=== PATIENT | male | born 1995 | race African-American/Black ===

== ENCOUNTER 2017-11-29 17:00 | Emergency (ER) | payer OTHER ==
[~2017-11-29] VITALS: Ht 182.9 cm; Wt 71.1 kg
[2017-11-29 17:02] VITALS: TEMP 38.4; Ht 182.9 cm; Wt 71.1 kg
--- NOTE | 2017-11-29 17:10 | EMERGENCY ROOM VISIT NOTE ---
ED Visit Note First contact with patient: 17:05 CHIEF COMPLAINT: Sore throat HISTORY OF PRESENTING ILLNESS: This is a 22-year-old male presents the emergency department by private vehicle with complaint of sore throat for the past 4 days. Patient was seen at [facility] today and was sent here for further evaluation. Patient has been having fevers, he last took ibuprofen 400 mg around 9 AM today. He states that the pain is constant, worse with swallowing, 10/10. He states that he has hardly had anything to eat and drink for the past 2 days and today it has felt difficult to swallow his saliva. He has had associated fevers and chills. He denies any headaches, vision changes, neck pain or stiffness, ear pain, cough, chest pain, shortness of breath, dizziness or syncope, abdominal pain, nausea or vomiting, urinary symptoms, or rash. He denies any history of throat problems in the past. He does think that he accidentally shared a drink with someone who had a sore throat recently. He reports that he is up-to-date on immunizations. REVIEW OF SYSTEMS: A complete 10 point review of systems was reviewed with the patient with pertinent positives and negatives as per history of present illness. All else were negative. PAST MEDICAL HISTORY: No significant past medical or surgical history. Up-to- date on immunizations. SOCIAL HISTORY: Lives at home. He is a [employer] student. He denies tobacco use. ALLERGIES: No known allergies. PHYSICAL EXAM: CONSTITUTIONAL: Pleasant and cooperative. No acute distress. Mildly dehydrated , but otherwise well appearing and well nourished. HEENT: Normocephalic, atraumatic. Pupils equal, round and reactive to light, EOMI. TMs normal. Pharynx is erythematous, with white exudates. Bilateral tonsillar edema, right greater than left with rightward uvular deviation. Positive trismus. Positive muffled voice. Tacky mucous membranes. NECK: Supple, full active range of motion without discomfort. Bilateral anterior cervical adenopathy, right greater than left. Tender to palpation. No palpable posterior cervical adenopathy. No nuchal rigidity or meningismus. RESPIRATORY: Clear to auscultation bilaterally with no wheezing, crackles, rhonchi or stridor. Equal expansion bilaterally. CARDIOVASCULAR: Regular rate and rhythm with no murmurs, rubs or gallops. Normal peripheral perfusion. No edema. GASTROINTESTINAL: Soft, nontender, nondistended. No palpable masses or HSM. Bowel sounds present in all quadrants. MUSCULOSKELETAL: Full range of motion of all joints without discomfort. INTEGUMENTARY: No rash or other significant dermatologic conditions noted. NEUROLOGIC: Alert and oriented X 4 with normal affect. Normal strength and sensation in all 4 extremities. No focal neurologic deficits noted. Normal gait observed. ED COURSE AND MEDICAL DECISION MAKING: CC: Patient presenting with complaint of sore throat DIFFERENTIAL DIAGNOSIS: Includes, but not limited to viral pharyngitis, strep pharyngitis, mononucleosis, tonsillitis, peritonsillar abscess, retropharyngeal abscess, among others. INTERPRETATION OF LABS: Marked leukocytosis with left shift, mild anemia, normal platelets, no significant electrolyte abnormalities, normal renal function. Waldo screen negative. Rapid strep is POSITIVE. MEDICATION RECONCILIATION: I attest that I have personally reviewed the patient 's current medication list. INITIAL VITAL SIGNS REVIEW: I reviewed the patient's initial vital signs and interpret them as follows: T: Febrile; BP: Normotensive; HR: Tachycardic; RR : Within normal limits; Pulse Ox: Within normal limits on room air. Blood pressure screening: The patient was found to have normal blood pressure on screening and does not require follow-up for repeat blood pressure check. SUMMARY: Patient was evaluated at bedside, history and physical exam performed. Patient is alert and oriented, in no acute distress, but appears uncomfortable and in pain, resting in the stretcher. There is significant swelling of the posterior pharynx, right greater than left with rightward uvular deviation. Positive trismus and muffled voice. Patient appears clinically consistent with a right-sided peritonsillar abscess. He is tolerating oral secretions and no airway compromise at this time. Orders were placed at bedside for labs, rapid strep and mononucleosis, IV fluids for hydration, IV Toradol for pain, IV Decadron for throat edema, IV clindamycin to treat infection. Patient discussed with Dr. Escamilla, who agrees with my assessment and plan. Labs reviewed as above, notable for leukocytosis, positive strep, negative mono. I spoke on the phone with Dr. Carrillo, ENT, regarding my concerns for right- sided peritonsillar abscess. He agrees to come in and evaluate the patient for possible drainage. Patient was evaluated by Dr. Carrillo at the bedside, the patient states he is feeling much better since receiving IV fluids and medications. Dr. Carrillo feels that he may have an early peritonsillar abscess, but would like to trial patient on oral medications first. He provided the patient with prescriptions for steroids, antibiotics, and pain medication. The patient is to follow-up tomorrow morning with Dr. Carrillo in the clinic for reevaluation. Patient reassessed multiple times throughout ED stay, he has remained stable, he has defervesced appropriately after IV Toradol (repeat temp 37.2 by my check at 1930), and he reports that his pain is much improved. He is able to tolerate p.o. fluids and applesauce without difficulty. Patient was updated on all results and plan for discharge, he was encouraged to keep his follow-up appointment with ENT tomorrow morning. Patient was provided with a take-home packs for prednisone, clindamycin, and Orange, as he will most likely not be able to get to the pharmacy and time to fill his prescriptions. He was educated regarding all of his medications and continued home care. Patient was also given strict return precautions should his symptoms worsen overnight, he verbalized understanding. Patient was discharged home in stable condition and ambulatory. Current/Historical Medications No Active Prescriptions or Reported Meds Allergies Coded Allergies: No Known Allergies (Unverified , 11/29/17) Vital Signs Date Time Temp Pulse Resp B/P (MAP) Pulse Ox O2 Delivery O2 Flow Rate FiO2 11/29/17 19:06 87 16 129/81 100 Room Air 11/29/17 17:44 98 Room Air 11/29/17 17:11 98 Room Air 11/29/17 17:02 38.4 105 18 134/82 95 Room Air Laboratory Results 11/29/17 17:40 Red Blood Count 4.77, Mean Corpuscular Volume 83.0, Mean Corpuscular Hemoglobin 28.9, Mean Corpuscular Hemoglobin Concent 34.8, Mean Platelet Volume 9.5, Neutrophils (%) (Auto) 80.0, Lymphocytes (%) (Auto) 9.2, Monocytes (%) (Auto) 9.8, Eosinophils (%) (Auto) 0.3, Basophils (%) (Auto) 0.2, Neutrophils # (Auto) 15.47, Lymphocytes # (Auto) 1.77, Monocytes # (Auto) 1.89, Eosinophils # (Auto) 0.06, Basophils # (Auto) 0.03 11/29/17 17:40 Test 11/29/17 17:40 White Blood Count 19.32 K/uL (4.8-10.8) Red Blood Count 4.77 M/uL (4.7-6.1) Hemoglobin 13.8 g/dL (14.0-18.0) Hematocrit 39.6 % (42-52) Mean Corpuscular Volume 83.0 fL (80-100) Mean Corpuscular Hemoglobin 28.9 pg (25-34) Mean Corpuscular Hemoglobin Concent 34.8 g/dl (32-36) Platelet Count 207 K/uL (130-400) Mean Platelet Volume 9.5 fL (7.4-10.4) Neutrophils (%) (Auto) 80.0 % Lymphocytes (%) (Auto) 9.2 % Monocytes (%) (Auto) 9.8 % Eosinophils (%) (Auto) 0.3 % Basophils (%) (Auto) 0.2 % Neutrophils # (Auto) 15.47 K/uL (1.4-6.5) Lymphocytes # (Auto) 1.77 K/uL (1.2-3.4) Monocytes # (Auto) 1.89 K/uL (0.11-0.59) Eosinophils # (Auto) 0.06 K/uL (0-0.5) Basophils # (Auto) 0.03 K/uL (0-0.2) RDW Standard Deviation 40.6 fL (36.4-46.3) RDW Coefficient of Variation 13.4 % (11.5-14.5) Immature Granulocyte % (Auto) 0.5 % Immature Granulocyte # (Auto) 0.10 K/uL (0.00-0.02) Dohle Bodies 1+ Anion Gap 10.0 mmol/L (3-11) Est Creatinine Clear Calc Drug Dose 100.4 ml/min Estimated GFR () 102.3 Estimated GFR (Non- 88.3 BUN/Creatinine Ratio 9.8 (10-20) Calcium Level 9.3 mg/dl (8.5-10.1) Monoscreen NEG (NEG) Date/Time Source Procedure Growth Status 11/29/17 00:00 Throat Group A Streptococcus Screen - Final SPECIMEN POSITIVE FOR GROUP A BETA ST... Complete 11/29/17 00:00 Throat Group A Streptococcus Screen ([facility]) - Final Complete Medications Administered Medications (Trade) Dose Ordered Sig/Loren Route Start Time Stop Time Status Last Admin Dose Admin Sodium Chloride 1,000 ml @ 999 mls/hr Q1H1M STAT IV 11/29/17 17:18 11/29/17 18:18 DC 11/29/17 17:18 999 MLS/HR Ketorolac Tromethamine (Toradol Inj) 15 mg NOW STAT IV 11/29/17 17:18 11/29/17 17:20 DC 11/29/17 17:54 15 MG Dexamethasone Sodium Phosphate (Decadron Inj) 10 mg STK-MED ONCE .ROUTE 11/29/17 17:50 11/29/17 17:51 DC 11/29/17 17:54 10 MG Clindamycin Phosphate (Cleocin 600mg/ 54ml D5W) 600 mg NOW STAT IV 11/29/17 18:37 11/29/17 18:38 DC 11/29/17 19:04 600 MG Clindamycin HCl (Cleocin 150MG Home Pack) 1 homepack UD ONCE PO 11/29/17 18:45 11/29/17 18:46 DC 11/29/17 18:45 1 HOMEPACK Acetaminophen/ Hydrocodone Bitart (Orange 5/325mg Home Pack) 1 homepack UD ONCE PO 11/29/17 18:45 11/29/17 18:46 DC 11/29/17 18:45 1 HOMEPACK Prednisone (PredniSONE TAB) 60 mg ONE ONCE PO 11/29/17 18:45 11/29/17 18:46 DC 11/29/17 18:45 60 MG Departure Information Impression Primary Impression: Streptococcal pharyngitis Additional Impression: Peritonsillar abscess Dispostion Home / Self-Care Condition GOOD Prescriptions No Active Prescriptions or Reported Meds Referrals [facility] (PCP) Skyler Carrillo MD Patient Instructions ED Peritonsillar Abscess, ED Peritonsillar Infec Abx No I andD, My [facility] Additional Instructions You were seen in the emergency department for your sore throat. The results of your rapid strep screen were found to be POSITIVE. Take medications all medications as prescribed. You were provided with written prescriptions by Dr. Carrillo, ENT, please get these filled tomorrow and take them as directed. You were provided with the following medication take-home packs: -Prednisone 20 mg tablets, take all 3 tablets at bedtime tonight. -Clindamycin 150 mg capsules, take 2 capsules at bedtime tonight and 2 capsules when you wake up tomorrow morning. -Orange (hydrocodone/acetaminophen) 5 mg/325 mg tablets, take 1-2 tablets every 4 -6 hours as needed for SEVERE pain. For pain and fever control, you can use the following [id number] medicines (if >12 yo): - Regular strength (325mg/tab) Tylenol (acetaminophen) 2 tabs every 4-6 hours as needed. Do not exceed 10 tablets in a 24 hour period. Avoid taking more than 3000 mg of Tylenol per day. This includes any other sources of acetaminophen you may take on a regular basis. - Regular strength (200 mg/tab) Advil (ibuprofen) 3 tabs every 6 hours as needed. Do not exceed a dose of 2400 mg per day. - For best results, alternate dosing of Tylenol and Advil. In addition to your prescribed medications, you can also use the following home remedies: - Warm salt-water gargles 3 times per day can soothe your throat and help to fight infection. - Warm tea with honey can soothe your throat. - Cepacol lozenges and Chloraseptic throat sprays may help with throat pain as well. These are available [id number]. To avoid spreading the strep throat to other people, do not share drinks or food and avoid kissing until you are completely recovered. You should switch to a new toothbrush after 4-5 days of antibiotics. Return to the emergency department if your symptoms worsen in the next 12 hours , especially if you develop the following symptoms of: inability to swallow solids, liquids, or drool; excessive wheezing or inability to catch your breath ; persistent high fevers that do not respond to medications, severe worsening pain, severe dizziness or passing out, or any other concerns. You are being scheduled to follow-up in the ENT clinic with Dr. Carrillo tomorrow morning, please keep this appointment. School Instructions Return To School: 2 days Problem Qualifiers
[2017-11-29] MEDS ORDERED: SODIUM CHLORIDE 0.9% 1000ML 1,000 ML IV STA (17:18)
[2017-11-29] MEDS ORDERED: KETOROLAC TROMETHAMINE 30 MG/ML VIAL IV STA (17:18)
[2017-11-29] MEDS ORDERED: AMPICILLIN/SULBACTAM SOD INJ 3,000 MG in SODIUM CHLORIDE 0.9% 100ML 100 ML IV ONE (17:30)
[2017-11-29] MEDS ORDERED: DEXAMETHASONE **PF** INJ 10 MG/ML VIAL IV ONE (17:30)
[2017-11-29] MEDS ORDERED: BENZOCAINE/TETRACAIN/BUTAM CAN 200 APPLN/20 GM CAN EXT STA (17:33)
[2017-11-29] MEDS ORDERED: LIDOCAINE/EPINEPHRINE 1% 20 ML VIAL INFIL ONE (17:45)
[2017-11-29] MEDS ORDERED: DEXAMETHASONE SOD INJ 10 MG/ML VIAL ONE (17:50)
[2017-11-29 17:55] LABS: HEMATOCRIT 39.6 % (42-52); HEMOGLOBIN 13.8 g/dL (14.0-18.0); MEAN CORPUSCULAR HEMOGLOBIN 28.9 pg (25-34); MEAN CORPUSCULAR HGB CONC 34.8 g/dl (32-36); MEAN PLATELET VOLUME 9.5 fL (7.4-10.4); PLATELET COUNT 207 K/uL (130-400); RED CELL DISTRIBUTION WIDTH CV 13.4 % (11.5-14.5); RED CELL DISTRIBUTION WIDTH SD 40.6 fL (36.4-46.3); WHITE BLOOD COUNT 19.32 K/uL (4.8-10.8)
[2017-11-29 18:14] LABS: CALCIUM 9.3 mg/dl (8.5-10.1); CREATININE 1.18 mg/dl (0.60-1.40); POTASSIUM 3.2 mmol/L (3.5-5.1)
[2017-11-29 18:19] LABS: BASO % 0.2 %; BASO ABS # 0.03 K/uL (0-0.2); EOS % 0.3 %; EOS ABS # 0.06 K/uL (0-0.5); LYMPH % 9.2 %; LYMPH ABS # 1.77 K/uL (1.2-3.4); MONO % 9.8 %; MONO ABS # 1.89 K/uL (0.11-0.59); NEUT ABS # 15.47 K/uL (1.4-6.5)
[2017-11-29] MEDS ORDERED: CLINDAMYCIN 600 MG/54 ML D5W IV STA (18:37)
[2017-11-29] MEDS ORDERED: CLINDAMYCIN 150MG HOME PACK PO ONE (18:45)
[2017-11-29] MEDS ORDERED: NORCO 5/325MG HOME PACK PO ONE (18:45)
[2017-11-29 19:06] VITALS: BP 129/81; PULSE 87; O2SAT 100
--- NOTE | 2017-11-29 19:37 | ENT CONSULTATION ---
DATE OF CONSULTATION: 11/29/2017 I have been asked by nurse practitioner, Tess Triana in the [facility] Emergency Room to evaluate this patient with a possible right-sided peritonsillar abscess. 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 He denies any referred otalgia, hoarseness, or unexplained weight loss. He does have a muffled voice. He was given 3 g of Unasyn and 10 mg of IV Decadron along with 15 mg of Toradol prior to my arrival and he is already feeling "60%" improved. He has no prior history of recurrent streptococcal tonsillitis. He has no prior history of peritonsillar abscess. ALLERGIES: No known drug allergies. MEDICATIONS UPON ADMISSION: None. PAST MEDICAL HISTORY: None. PAST SURGICAL HISTORY: None. 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 He admits to smoking cigarettes when he is intoxicated with alcohol. He has also tried other drugs to include marijuana, cocaine, and ecstasy. He denies any recent drug use. REVIEW OF SYSTEMS: The patient has severe right greater than left sore throat with odynophagia. He denies any referred otalgia, dysphagia, hoarseness, or unexplained weight loss. He has some lightheadedness but no dizziness, shortness of breath, or chest pain. PHYSICAL EXAMINATION: GENERAL: This is a mildly ill-appearing male in no acute distress with a mild muffled voice. HEENT: His bilateral external auditory canals and tympanic membranes are clear. Nasal examination reveals mild nasal mucosal congestion and moderate bilateral inferior turbinate hypertrophy. There is no polyposis or purulence. Oral cavity and oropharyngeal examination reveals mild trismus. He has an exudative tonsillitis that is worse on the right hand side. He does have mild erythema and soft tissue edema involving the right greater than left soft palate with no significant uvular deviation. He has severe halitosis. He has right greater than left upper jugular digastric lymphadenopathy which is tender on palpation. There is no overlying erythema, warmth, or fluctuance within the neck. NEUROLOGIC: Cranial nerves II-XII are grossly intact. The patient is awake, alert, and oriented x3. LABORATORY EXAMINATION: Reveals an elevated white blood cell count of 19.32. He is also mildly anemic with a hematocrit of 39.6. He has mild hypokalemia with a potassium of 3.2. Clarke screen is still pending. IMPRESSION AND RECOMMENDATIONS: A 22-year-old male with severe right greater than left exudative tonsillitis and a clinical picture consistent with possible mononucleosis. Clarke screen is pending. He also has evidence of peritonsillar cellulitis and perhaps an early abscess. However, he has responded nicely to IV Unasyn and IV Decadron. He has had no oral antibiotics or steroids prior to arrival in the Emergency Room today. I have recommended clindamycin 300 mg 4 times daily for 10 days in a liquid form, Orapred 15 mg per 5 with 10 mL p.o. b.i.d. for 5 days followed by 5 mL p.o. b.i.d. for 2 days, followed by 5 mL daily for 2 days along with a prescription for hydrocodone/acetaminophen 7.5 mg/325 mg/15 mL with 5-15 mL every 4 hours as needed for pain with 270 mL given and no refills. I have strongly encouraged him not to drink alcohol or take any drugs during this treatment and illness. I have asked him to refrain from having any kind of sexual activity during this time. I would like to see him back in my office tomorrow morning at 10:00 a.m. for followup, but he should return to the Emergency Room if his symptoms worsen. I have also talked to him about the importance of compliance with taking these medications as prescribed and he should start the oral medications today. I have talked to him about the potential side effect of Clostridium difficile colitis with use of clindamycin and I have recommended that he takes the medication on a full stomach and eats yogurt while on the medication. He is to stop the medication if he develops severe cramping, and/or bloody diarrhea. Thank you for the consultation on this patient and please do not hesitate to contact me if you have any questions. The impression recommendations were discussed with Tess Triana and he will be discharged from the Emergency Room later this evening with close clinical followup tomorrow morning in my office.
[2017-11-30] MEDS ORDERED: [UNRECOGNIZED DRUG - CODE] PO (10:43)
== END 2017-11-29 19:35 | disposition home or self-care (01) ==
LOC: C.EDB 17:03 → C.EDA 19:35
DX: J02.0 Streptococcal pharyngitis (principal); E86.0 Dehydration